=== PATIENT | male | born 1975 | race Two or more races ===

== ENCOUNTER 2017-08-05 06:36 | Emergency (ER) | payer OTHER ==
[~2017-08-05] VITALS: Ht 180.3 cm; Wt 86.5 kg
[2017-08-05 07:41] VITALS: BP 120/75
== END 2017-08-05 07:43 | disposition home or self-care (01) ==
LOC: TRA 06:36
DX: S01.111A Laceration without foreign body of right eyelid and periocular area, initial encounter (principal); V79.9XXA Bus occupant (driver) (passenger) injured in unspecified traffic accident, initial encounter
CPT/HCPCS: 99281; 99284